=== PATIENT | female | born 1995 | race Asian ===

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

== ENCOUNTER 2017-03-08 10:41 | Emergency (ER) | payer OTHER ==
[2017-03-08] MEDS ORDERED: IBUPROFEN 600 MG TAB PO ONE (11:12)
--- NOTE | 2017-03-08 12:12 | EDPHY ---
H & P Smoking Status: Never smoked Time Seen by Provider: 03/08/17 12:01 HPI/ROS: CHIEF COMPLAINT: Cold-like symptoms x2 days HISTORY OF PRESENT ILLNESS: 21-year-old immunocompetent female complaining 2 days of sinus congestion, sore throat, nonproductive cough. No fever no chills. No nausea no vomiting. No abdominal pain. No rash. REVIEW OF SYSTEMS: A ten point review of systems was performed and is negative with the exception of the items mentioned in the HPI PAST MEDICAL & SURGICAL HISTORY: No pertinent medical or surgical history. No influenza vaccination SOCIAL HISTORY:nonsmoker. PHYSICAL EXAM (Prior to examination, patient consented to physical exam, hands were washed and my usual and customary physical exam procedures followed) 1) GENERAL: Well-developed, well-nourished, alert and oriented. Appears to be in no acute distress. 2) HEAD: Normocephalic, atraumatic 3) HEENT: Pupils equal, round, reactive to light bilaterally. Sclera anicteric. Nasopharynx: Positive for congestion., oropharynx, clear, no lesions, no tonsillar enlargement or exudate.. Ears bilaterally with normal tympanic membranes. 4) NECK: Full range of motion, no meningeal signs. 5) LUNGS: Clear auscultation bilaterally, no wheezes, no rhonchi, no retractions. 6) HEART: Regular rate and rhythm, no murmur, no heave, no gallop. 7) ABDOMEN: No guarding, no rebound, no focal tenderness, negative McBurney's, negative Hernández's, negative Rovsing's, negative peritoneal sign, 8) MUSCULOSKELETAL: Moving all extremities, no focal areas of tenderness, no obvious trauma. No peripheral edema or discoloration. 9) BACK: No CVA tenderness, no midline vertebral tenderness, no fluctuance, no step-off, no obvious trauma, no visual or palpable abnormality. 10) SKIN: No rash, no petechiae. 11) Psychiatric: Patient is oriented X 3, there is no agitation. DIFFERENTIAL DIAGNOSIS: in no particular include but limited to viral syndrome , influenza, meningitis (Claire,River Cori) Constitutional: Initial Vital Signs Temperature (C) 36.5 C 03/08/17 10:56 Heart Rate 110 H 03/08/17 10:56 Respiratory Rate 17 03/08/17 10:56 Blood Pressure 93/57 L 03/08/17 10:56 O2 Sat (%) 94 03/08/17 10:56 O2 Delivery Mode Room Air Allergies/Adverse Reactions: No Known Allergies Allergy (Verified 12/31/16 10:09) Home Medications: Medication Instructions Recorded Albuterol [Proventil Inhaler HFA 1 - 2 puffs IH Q4PRN PRN #1 mdi 03/08/17 (*)] Benzonatate [Tessalon Pearles (RX)] 200 mg PO TID PRN #15 cap 03/08/17 Ipratropium 0.06% Nasal [Atrovent 2 sprays EACHNARE QID #1 mdi 03/08/17 0.06% Nasal (RX)] MDM/Departure - MDM Medications Given: Discontinued Medications Ibuprofen (Motrin) 600 mg PO EDNOW ONE Stop: 03/08/17 11:13 Last Admin: 03/08/17 11:15 Dose: 600 mg ED Course/Re-evaluation: Patient's symptoms are more than likely secondary to viral etiology. At time of my evaluation her heart rate in the mid 90s. Doubt meningitis. Doubt influenza. For these reasons, I do not feel antibiotics are currently indicated. In addition, I do not identify indication for chest x-ray as the patient's lungs are clear bilaterally, has a normal pulse ox, speaking full sentences, no signs of respiratory distress. The patient understands that this diagnosis is provisional and can never be 100% accurate. Usual and customary warnings were given concerning the clinical impression and all the patient's questions were answered. The patient was instructed to return to the emergency department should her symptoms worsen or return, or develop any new symptoms, otherwise to followup as directed in discharge instructions. (River Rangel) The patient was evaluated and managed by the Physician Design Coordinator. I discussed the patient's presentation and course with the physician family readiness support assistant and agree with the evaluation. My co-signature indicates that I have reviewed this chart and I agree with the findings and plan of care as documented. I am the secondary supervising physician. (Martha Painter) - Depart Disposition: Home, Routine, Self-Care Clinical Impression: Upper respiratory infection Qualifiers: URI type: unspecified URI Qualified Code(s): J06.9 - Acute upper respiratory infection, unspecified Condition: Good Instructions: Upper Respiratory Infection (ED) Additional Instructions: You were examined in the emergency department today for upper respiratory infection (URI) like symptoms. While more URIs are caused by viral illnesses, we cannot always exclude the possibility of a bacterial infection that may require treatment with antibiotics. Please be re-examined by a medical professional within 24 hours. Return to the emergency department immediately for change in breathing habits, change in voice, change in swallowing habits, change in mental status, or any other symptoms that concern you. Stand Alone Forms: School Excuse Prescriptions: Albuterol [Proventil Inhaler HFA (*)] 1 - 2 puffs IH Q4PRN PRN #1 mdi PRN Reason: Cough, Moderate Benzonatate [Tessalon Pearles (RX)] 200 mg PO TID PRN #15 cap PRN Reason: Cough, Moderate Ipratropium 0.06% Nasal [Atrovent 0.06% Nasal (RX)] 2 sprays EACHNARE QID #1 mdi Referrals: [facility],. [Clinic] - 2-3 days, call for appt.
[2017-03-08 12:23] VITALS: BP 102/85; PULSE 85; RESP 18; TEMP 98.4; O2SAT 96
== END 2017-03-08 12:20 | disposition home or self-care (01) ==
DX: J06.9 Acute upper respiratory infection, unspecified (principal)